=== PATIENT | male | born 1985 | race Caucasian/White ===

== ENCOUNTER 2016-08-10 17:33 | Emergency (ER) | payer OTHER ==
[2016-08-10] MEDS ORDERED: Diph,Pert(Acell),Tet Vac 0.5 ML SYR IM ONE (18:35)
--- NOTE | 2016-08-10 18:55 | Emergency Department Record ---
History of Present Illness - General Chief Complaint: Laceration(s) Stated Complaint: LAC ON R FOREARM Time Seen by Provider: 08/10/16 18:11 Source: Patient Mode of Arrival: Ambulatory Limitations: No limitations - History of Present Illness Initial Commments: 31 yo male presents with a left forearm laceration after a fall at work. No head or neck injury. He lacerated the right forearm. He has minimal pain and full ROM. No numbness or tingling. Not over a joint. He has other abrasions on the arms and legs with pain with weight bearing. Onset/Timin -: Minutes(s) Extremity Location: Right: Forearm Place: Work Context: Accidental Associated Symptoms: None - [place] Coma Scale Eye Response: (4) Open spontaneously Motor Response: (6) Obeys commands Verbal Response: (5) Oriented Deidre Total: 15 - Related Data Hx Tetanus Toxoid Vaccination: Yes Previous Rx's Medication Instructions Recorded Cephalexin [Keflex] 500 mg PO TID #21 cap 08/10/16 Allergies Allergy/AdvReac Type Severity Reaction Status Date / Time No Known Drug Allergies Allergy Verified 08/10/16 17:47 Travel Screening - Travel/Exposure Within Last 30 Days Have you traveled within the last 30 days?: No - Travel/Exposure Within Last Year Have you traveled outside the [place] in the last year?: No - Additonal Travel Details Have you been exposed to anyone with a communicable illness?: No - Travel Symptoms Symptom Screening: None Review of Systems Constitutional: Denies: Chills, Fever, Malaise, Weakness Eyes: Denies: Eye discharge, Eye pain ENT: Denies: Congestion, Throat pain Respiratory: Denies: Cough, Dyspnea Cardiovascular: Denies: Chest pain, Syncope Endocrine: Denies: Fatigue Gastrointestinal: Denies: Diarrhea, Nausea, Vomiting Genitourinary: Denies: Dysuria, Frequency Musculoskeletal: Denies: Arthralgia, Back pain, Joint swelling, Myalgia, Neck pain Skin: Reports: Other. Denies: Bruising, Change in color Neurological: Denies: Confusion, Headache Psychiatric: Denies: Anxiety Hematological/Lymphatic: Denies: Blood Clots, Easy bleeding, Easy bruising, Swollen glands Past Medical History - SOCIAL HISTORY Smoking Status: Current every day smoker Alcohol Use: None Drug Use: None - RESPIRATORY Hx Respiratory Disorders: No - CARDIOVASCULAR Hx Cardio Disorders: No - GI Hx GI Disorders: No - Hx Genitourinary Disorders: No - ENDOCRINE Hx Endocrine Disorders: No - MUSCULOSKELETAL Hx Musculoskeletal Disorders: No - PSYCH Hx Psych Problems: No - HEMATOLOGY/ONCOLOGY Hx Hematology/Oncology Disorders: No Family Medical History Any Significant Family History?: No Physical Exam - General General Appearance: Alert, Oriented x3, Cooperative, No acute distress Limitations: No limitations - Head Head exam: Atraumatic, Normocephalic, Normal inspection - Eye Eye exam: Normal appearance, PERRL - ENT ENT exam: Normal exam Ear exam: Normal external inspection Nasal Exam: Normal inspection Mouth exam: Normal external inspection - Neck Neck exam: Normal inspection, Full ROM. negative: Tenderness - Respiratory Respiratory exam: Normal lung sounds bilaterally. negative: Respiratory distress - Cardiovascular Cardiovascular Exam: Regular rate, Normal rhythm, Normal heart sounds Peripheral Pulses: 2+: Radial (R), Radial (L) - GI/Abdominal GI/Abdominal exam: Soft. negative: Tenderness - Rectal Rectal exam: Deferred - exam: Deferred - Extremities Extremities exam: Other (Multiple abrasions to the LUE forearm and RLE, RUE forearm, &cm laceration to the right forearm). negative: Normal inspection Image of Full Body: 1 - 7cm clean, linear laceration, no FB, full ROM of the elbow without pain - Back Back exam: Reports: Normal inspection, Full ROM. Denies: Muscle spasm, Rash noted, Tenderness - Neurological Neurological exam: Alert, Normal gait, Oriented X3. negative: Motor sensory deficit - Psychiatric Psychiatric exam: Normal affect, Normal mood - Skin Skin exam: Abrasion Course Vital Signs 08/10/16 17:36 Temperature 98.8 F Pulse Rate 98 H Respiratory 16 Rate Blood Pressure 136/78 Pulse Ox 97 - Reevaluation(s) Reevaluation #1: Procedure: 7cm forearm laceration Betadine skin prep ShurClens irrigation NS Irrigation No FB in bloodless field Prolene Suture 3-0 9 Sutures were placed Tolerated well We discussed home care and reasons to return if any concerns with the healing 08/10/16 18:53 08/10/16 19:53 Disposition Disposition: Discharge Clinical Impression: Forearm laceration Qualifiers: Encounter type: initial encounter Laterality: left Qualified Code(s): S51.812A - Laceration without foreign body of left forearm, initial encounter Disposition: Home, Self-Care Condition: (1) Good Instructions: Laceration (ED) Additional Instructions: Return in 2 weeks for suture removal Return immediately if you have pain, fever, redness, drainage, pus or concerns. Prescriptions: Cephalexin [Keflex] 500 mg PO TID #21 cap Forms: Patient Portal Access Time of Disposition: 18:52
== END 2016-08-10 19:22 | disposition home or self-care (01) ==
LOC: ER 17:33
DX: S51.811A Laceration without foreign body of right forearm, initial encounter (principal); W18.30XA Fall on same level, unspecified, initial encounter; Y92.63 Factory as the place of occurrence of the external cause; Y99.0 Civilian activity done for income or pay
CPT/HCPCS: 12002; 90715; 99283